=== PATIENT | female | born 1960 | race Caucasian/White ===

== ENCOUNTER → 2024-03-27 | Outpatient (CLI) | payer OTHER ==
--- NOTE | 2024-03-27 15:30 | CT ---
EXAMINATION TYPE: CT chest wo con DATE OF EXAM: 03/27/2024 COMPARISON: PET/CT dated 01/03/2024 HISTORY: Lung nodules. CT DLP: 133.3 mGycm. Automated Exposure Control for Dose Reduction was Utilized. TECHNIQUE: CT scan of the thorax is performed without IV contrast. FINDINGS: There is a 10.6 mm well-circumscribed round pulmonary mass/nodule in the right upper lobe. No additio nal pulmonary nodules are seen. There is no abnormal airspace/consolidative density or abnormal interstitial density. There is no pleural effusion, pleural thickening or pneumothorax. Right DOS the chest are normal and there is no mediastinal, hilar or axillary adenopathy. Limited scanning through the upper abdomen a large laminated gallstone. No focal osseous lesions are seen. IMPRESSION: 1. BI-RADS Category 4A. Despite background activity within the nodule on the PET scan dated 4, 3 month follow-up CT of the thorax is recommended to evaluate stability. 2. No acute cardiopulmonary disease. 3. Cholelithiasis.
== END | disposition home or self-care (01) ==
LOC: RADCTMAIN 14:50
PROVIDERS: ATTEND Internal Medicine Critical Care Medicine
DX: K80.20 Calculus of gallbladder without cholecystitis without obstruction (principal); R91.1 Solitary pulmonary nodule
CPT/HCPCS: 71250

== ENCOUNTER → 2024-07-30 | Outpatient (CLI) | payer OTHER ==
--- NOTE | 2024-07-30 14:32 | CT ---
EXAMINATION TYPE: CT chest w con CT DLP: 135 mGycm, Automated exposure control for dose reduction was used. DATE OF EXAM: 07/30/2024 1:20 PM COMPARISON: CT chest 03/27/2024, PET/CT 01/03/2024. CLINICAL INDICATION:Female, 64 years old with history of R91.1 SOLITARY PULMONARY NODULE; PHH, f/u no dules TECHNIQUE: Multiple axial images were obtained through the chest following the administration of 100 cc of Isovue 300. . Coronal and sagittal reformats reviewed. FINDINGS: LUNGS/ PLEURA: No pleural effusion, pneumothorax, or focal consolidation. Stable lateral right lower lobe linear scarring. Right midlung linear atelectasis. Stable anterior right upper lobe 10.4 mm pulm onary nodule, previously 10.6 mm cyst (series 4, image 26). No new or enlarging pulmonary nodules. AIRWAY: Patent and unremarkable.. HEART: Size within normal limits. No pericardial effusion. MEDIASTINUM: No evidence of adenopathy. VASCULATURE: No aortic aneurysm. Mild atherosclerotic calcification of the aorta and its branches mo st prominently involving the proximal left subclavian artery with minimal stenosis. MUSCULOSKELETAL: No acute osseous abnormalities. Remote healed bilateral anterior rib fractures. SOFT TISSUES/LYMPH NODES: Unremarkable. LOWER NECK: No significant findings. UPPER ABDOMEN: Cholelithiasis. Periampullary duodenal diverticulum. IMPRESSION: 1. Stable right upper lobe 1 cm pulmonary nodule. No new pulmonary nodules. Continued clinical survei llance is recommended with follow-up CT chest in 6-12 months. 2. Cholelithiasis. [facility], , 07/30/2024 2:30 PM
== END | disposition home or self-care (01) ==
LOC: RADCTMAIN 11:48
PROVIDERS: ATTEND Internal Medicine Critical Care Medicine
DX: R91.1 Solitary pulmonary nodule
CPT/HCPCS: 71260